=== PATIENT | male | born 1955 | race American Indian/Alaskan Native ===

== ENCOUNTER 2019-10-16 11:38 | Emergency (ER) | payer OTHER ==
[2019-10-16] MEDS ORDERED: IPRATROPIUM 0.02% NEBU 2.5 ML IH ONE (12:22)
[2019-10-16] MEDS ORDERED: predniSONE 20 MG TAB PO ONE (12:22)
[2019-10-16] MEDS ORDERED: ALBUTEROL 2.5 MG/3 ML NEBU IH ONE (12:22)
--- NOTE | 2019-10-16 12:28 | Emergency Department Report ---
HPI - General Time Seen by Provider: 10/16/19 12:15 - HPI HPI: Room 6 The patient is a 63-year-old male presenting with a chief complaint of shortness of breath. Patient states this morning he developed shortness of breath and wheezing consistent with previous COPD exacerbations. Patient states today he had a cough that is nonproductive. Patient denies history of fever. Patient was transported via EMS was administered a nebulizer en route and now states he feels "great." Location: [See above] Duration: [See above] Quality: [See above] Severity: [See above] Timing: [See above] Context: [See above] Modifying factors: [See above] Associated signs and symptoms: [see above] ED Past Medical Hx - Past Medical History Hx Hypertension: Yes Hx COPD: Yes - Surgical History Past Surgical History?: No - Family History Family history: no significant - Social History Smoking Status: Current Some Day Smoker (occasional) Substance Use Type: None (denies illicit drug use) - Medications Home Medications: Home Medications Medication Instructions Recorded Confirmed Last Taken Type Albuterol INH(or & Nicu Only) 2 puff IH QID PRN #1 inhalation 01/07/14 08/21/19 08/20/19 Rx [ProAir HFA Inhaler] ALBUTEROL NEB's [Proventil 0.083% 2.5 mg IH Q3HRT PRN #30 nebu 09/16/19 Unknown Rx NEBS] Acetaminophen [Acetaminophen TAB] 1 tab PO Q4H PRN #15 tablet 09/16/19 Unknown Rx Arformoterol Nebu [Brovana Nebu] 15 mcg IH Q12HRT #30 ml 09/16/19 Unknown Rx Budesonide [Pulmicort Respules] 0.5 mg IH Q12HRT #30 nebu 09/16/19 Unknown Rx Famotidine [Pepcid] 20 mg PO BID #30 tablet 09/16/19 Unknown Rx Lispro Insulin [HumaLOG] 1 dose SUB-Q Q6HR PRN #1000 units 09/16/19 Unknown Rx Nicotine [Habitrol] 14 mg TD QDAY #14 patch 09/16/19 Unknown Rx QUEtiapine [SEROquel] 150 mg PO QHS #30 tablet 09/16/19 Unknown Rx levETIRAcetam [Keppra] 500 mg PO BID #3000 oral.liqd 09/16/19 Unknown Rx Albuterol INH(or & Nicu Only) 2 puff IH QID PRN #8.5 gram 10/16/19 Unknown Rx [ProAir HFA Inhaler] Prednisone [predniSONE 10 mg 10 mg PO .TAPER #1 tab.ds.pk 10/16/19 Unknown Rx (6-Day Pack, 21 Tabs)] ED Review of Systems ROS: Stated complaint: SIMON Other details as noted in HPI Constitutional: denies: fever Eyes: denies: eye pain ENT: denies: throat pain Respiratory: cough, shortness of breath, wheezing Cardiovascular: denies: chest pain Endocrine: no symptoms reported Gastrointestinal: denies: abdominal pain Musculoskeletal: denies: back pain Neurological: denies: headache Physical Exam - Physical Exam Physical Exam: GENERAL: The patient is well-developed well-nourished male sitting on stretcher not appearing to be in acute distress. [] HEENT: Normocephalic. Atraumatic. Extraocular motions are intact. Patient has moist mucous membranes. NECK: Supple. Trachea midline CHEST/LUNGS: Diffuse faint wheezing. There is no respiratory distress noted. HEART/CARDIOVASCULAR: Regular. There is no tachycardia. There is no gallop rub or murmur. ABDOMEN: Abdomen is soft, nontender. Patient has normal bowel sounds. There is no abdominal distention. SKIN: There is no rash. There is no diaphoresis. NEURO: The patient is awake, alert, and oriented. The patient is cooperative. The patient has normal speech MUSCULOSKELETAL: There is no evidence of acute injury. ED Course - Reevaluation(s) Reevaluation #1: 10/16/19 14:52 Patient states he feels much improved and is comfortable being discharged ED Medical Decision Making - Differential Diagnosis COPD exacerbation Critical care attestation.: If time is entered above; I have spent that time in minutes in the direct care of this critically ill patient, excluding procedure time. ED Disposition Clinical Impression: COPD exacerbation, Shortness of breath Disposition: DC-01 TO HOME OR SELFCARE Is pt being admited?: No Does the pt Need Aspirin: No Condition: Stable Instructions: Chronic Obstructive Pulmonary Disease (ED) Additional Instructions: Return to the emergency department should you develop worsening symptoms, inability to tolerate food or liquids, high fever or any other concerns Prescriptions: Prednisone [predniSONE 10 mg (6-Day Pack, 21 Tabs)] 10 mg PO .TAPER #1 tab.ds.pk Albuterol INH(or & Nicu Only) [ProAir HFA Inhaler] 2 puff IH QID PRN #8.5 gram PRN Reason: Shortness Of Breath Referrals: SUZE BALES MD [Staff Physician] - 3-5 Days Time of Disposition: 14:53
[2019-10-16 15:27] VITALS: BP 113/71
== END 2019-10-16 15:27 | disposition home or self-care (01) ==
LOC: ED 11:38
DX: J44.1 Chronic obstructive pulmonary disease with (acute) exacerbation (principal); I10 Essential (primary) hypertension; F17.200 Nicotine dependence, unspecified, uncomplicated; Z79.899 Other long term (current) drug therapy
CPT/HCPCS: 94644; 99283; J7512